=== PATIENT | male | born 1935 | race Caucasian/White ===

== ENCOUNTER → 2016-11-21 | Outpatient (CLI) | payer MEDICARE, OTHER | END | disposition home or self-care (01) | LOC: GMAB 10:38 | PROVIDERS: ATTEND Family Medicine | DX: Z12.5 Encounter for screening for malignant neoplasm of prostate (principal); I10 Essential (primary) hypertension | CPT/HCPCS: 84443; G0103 ==

== ENCOUNTER → 2017-01-25 | Outpatient (CLI) | payer MEDICARE, OTHER ==
--- NOTE | 2017-01-26 11:10 | RAD ---
EXAM DESCRIPTION: Abdomen 1 View CLINICAL HISTORY: 81 yearsMale, CALCULUS OF KIDNEY COMPARISON: 01/20/2016 IMPRESSION: Again demonstrated is a 1.5 cm round calcification projecting over the superior pole of the left renal fossa , likely nephrolithiasis. No additional calcification along the expected course of either ureter. Calcified phleboliths in the pelvis. Surgical clips are also demonstrated in the pelvis. There is a nonspecific, nonobstructive bowel gas pattern. No distended loops of bowel are visualized. Multilevel degenerative changes in the lumbar spine. Electronically signed by: William Garcia MD 01/26/2017 11:09 AM CDT
== END ==
LOC: RAD 13:49
PROVIDERS: ATTEND Urology
DX: N20.0 Calculus of kidney (principal)

== ENCOUNTER → 2017-02-07 | Outpatient (CLI) | payer MEDICARE, OTHER ==
--- NOTE | 2017-02-08 11:53 | CT ---
EXAM DESCRIPTION: Chest w/o Contrast CLINICAL HISTORY: J18.9 shortness of breath and chronic cough COMPARISON: None. TECHNIQUE: Noncontrast transaxial CT images of the chest are obtained. This exam was performed according to our departmental dose-optimization program, which includes automated exposure control, adjustment of the mA and/or kV according to patient size and/or use of iterative reconstruction technique . FINDINGS: Heart shows moderate coronary artery calcifications. Mild scattered calcified plaque of the thoracic aorta is seen. There are nonspecific mostly less than 1 cm short axis mediastinal lymph nodes in the paratracheal and left prevascular region. Mild subcarinal lymphadenopathy seen. No significant pleural or pericardial effusion. Visualized portion of the upper abdomen shows fluid attenuation cortical cysts of the kidneys. The largest which demonstrates thin partly calcified septation is incompletely visualized measuring at least 7.6 cm. Lungs are normally aerated. There is interstitial thickening and bronchial wall thickening in the periphery of the left lower lobe and portions of the lingula of the left upper lobe. This area is partly of securing by patient breathing motion artifact. Mild interstitial nodular changes in the right middle lobe are seen on sagittal reconstructed images. No significant bronchiectasis is seen. There is a 4 mm noncalcified pulmonary nodule in the right lower lobe over the hemidiaphragm on image 39 of series 2. Osseous structures show no aggressive bony lesions. Moderate degenerative changes of the spine are seen. IMPRESSION: Mostly interstitial infiltrate with bronchial wall thickening in the left lower lobe and probably portions of the lingula of the left upper lobe likely represent infectious or inflammatory etiology. This could represent bronchitis versus developing pneumonia or pneumonitis. There may be some degree of atelectasis. Continued follow-up until resolution is recommended to exclude neoplastic process. Borderline nonspecific spinal lymphadenopathy is seen. Partly visualized cortical cysts of the kidneys are seen. The largest cyst in the upper pole of the left lobe shows thin calcifications along the periphery. Consider further evaluation with CT or ultrasound of the kidneys. Electronically signed by: Jay Calderon MD 02/08/2017 11:53 AM CDT
== END | disposition home or self-care (01) ==
LOC: CT 10:54
PROVIDERS: ATTEND Family Medicine
DX: J18.9 Pneumonia, unspecified organism (principal)

== ENCOUNTER → 2017-02-27 | Outpatient (CLI) | payer MEDICARE, OTHER ==
--- NOTE | 2017-02-27 22:03 | US ---
EXAM DESCRIPTION: Renal CLINICAL HISTORY: 81 years Male, RENAL CYST COMPARISON: CT chest dated February 07, 2017 FINDINGS: Bilateral renal sonography demonstrates the right kidney 12.1 x 6.1 x 6.0 cm and the left kidney 12.8 x 7.6 x 7.0 cm. On the right a multilocular but otherwise benign-appearing 6.5 cm cyst of the upper pole right kidney is noted with an additional 2.1 cm simple cyst of the mid right kidney noted. On the left a lobulated slightly thick-walled and irregular and septated with slightly thickened septation upper pole 6.4 x 5.8 x 5.9 cm cyst is present. A simple cyst of the mid kidney measuring 2.6 cm in size is present. Complicated cyst is at least modestly worrisome and needs further characterization with either multiphase noncontrast and enhanced CT or MRI to exclude the possibility of a cystic neoplasm. This almost certainly represents the cyst described on the chest CT and only partially visualized with peripheral calcification and now demonstrating in internal septation and some marginal irregularity. IMPRESSION: 1. Bilateral renal cystic disease with multilocular larger and a simple appearing smaller cyst of the right kidney. 2. Complicated lobulated slightly irregular septated cyst of the upper pole left kidney with poor delineation of the margin and sufficient irregularity to warrant further evaluation with multiphase noncontrast and contrast-enhanced cross-sectional imaging with either CT examination or MRI examination. A cystic neoplasm cannot be excluded involving the upper pole of the left kidney. An additional small simple cyst of the mid left kidney is noted. 3. Bladder was not evaluated on this renal study. Electronically signed by: Slim Merrill MD 02/27/2017 10:03 PM CDT
== END | disposition home or self-care (01) ==
LOC: US 10:36
PROVIDERS: ATTEND Family Medicine
DX: N28.1 Cyst of kidney, acquired (principal)

== ENCOUNTER → 2017-03-20 | Outpatient (CLI) | payer MEDICARE, OTHER ==
--- NOTE | 2017-03-20 11:00 | CT ---
EXAM DESCRIPTION: CT ABDOMEN AND PELVIS WITHOUT AND WITH CONTRAST CLINICAL HISTORY: RENAL CYSTS COMPARISON: None Available. TECHNIQUE: CT of the abdomen and pelvis are performed prior to and during IV bolus administration of nonionic contrast. Oral contrast was not utilized. FINDINGS: Noncontrast imaging demonstrates mild dependent atelectasis at the lung bases without mass or dense consolidation. An approximate 1.4 cm stone in the gallbladder neck without acute inflammation is noted. Large bilateral renal cyst with thin septation of a bilobed large upper pole cyst on the left with calcification is present. A small accessory splenule is incidentally noted. Aortic calcification is present with left colonic diverticulosis. Intrarenal calculi are not apparent. Delayed enhanced imaging demonstrates a normal-appearing liver on equilibrium phase of imaging with a small normal spleen and normal-appearing pancreas and adrenal glands. No ductal dilation is seen with cholelithiasis again noted. The right kidney demonstrates normal renal function with a large approximate 5 cm benign upper pole renal cyst and smaller 1.5 cm lower pole renal cyst. The left kidney demonstrates a bilobed thinly septated benign-appearing cyst involving the upper pole of the kidney as well as a moderate mid pole simple appearing 2.3 cm cyst. No worrisome solid masses of either kidney are noted and no hydronephrosis is evident. Aortic calcification without aneurysm and no evidence of retroperitoneal adenopathy noted. Within the pelvis left colonic diverticulosis is present with layering contrast in the normal appearing bladder. The anterior abdominal wall is unremarkable. The right lower quadrant including the appendix and cecal region is normal. Mild scoliosis and modest degenerative changes of the spine are noted. IMPRESSION: 1. Bilateral renal cystic disease with large simple cyst upper pole of the right kidney with smaller lower pole cyst and bilobed septated in minimally calcified upper pole approximate 7 cm cyst left kidney, benign in appearance with additional simple cysts. No further workup is required. 2. Cholelithiasis 3. Left colonic diverticulosis 4. Degenerative changes and scoliosis of the spine. Electronically signed by: Slim Merrill MD 03/20/2017 11:00 AM CDT
== END | disposition home or self-care (01) ==
LOC: CT 09:07
PROVIDERS: ATTEND Urology
DX: N28.1 Cyst of kidney, acquired (principal)

== ENCOUNTER → 2017-11-28 | Outpatient (CLI) | payer MEDICARE, OTHER | LOC: GMAB 11:49 | PROVIDERS: ATTEND Family Medicine | DX: I10 Essential (primary) hypertension (principal); Z12.5 Encounter for screening for malignant neoplasm of prostate | CPT/HCPCS: 84443; G0103 ==

== ENCOUNTER → 2018-12-07 | Outpatient (CLI) | payer MEDICARE, OTHER | LOC: GMAE 10:50 | PROVIDERS: ATTEND Family Medicine | DX: I10 Essential (primary) hypertension (principal) ==

== ENCOUNTER 2020-10-28 13:26 | Outpatient (CLI) | payer MEDICARE | END 2020-10-29 11:15 | disposition home or self-care (01) | LOC: INFRM 13:26 | PROVIDERS: ATTEND Family Medicine | DX: U07.1 COVID-19 (principal); Z23 Encounter for immunization ==